=== PATIENT | female | born 1985 | race Caucasian/White ===

== ENCOUNTER → 2018-05-14 | Outpatient (CLI) | payer BC ==
--- NOTE | 2018-05-15 13:20 | MR ---
EXAMINATION TYPE: MR brain wo/w con DATE OF EXAM: 05/14/2018 COMPARISON: None HISTORY: FAMILY HISTORY OF MULTIPLE SCLEROSIS CONTRAST: Performed utilizing 6.5 mL intravenous Gadavist gadolinium contrast. TECHNIQUE: Multiplanar, multisequence imaging of the brain is performed on a 3.0 Elidia magnet. Demye linating disease protocol with additional Sagittal Flair sequence is performed. Study is performed wi thin 24 hours of arrival to the hospital. FINDINGS: Signal through the brain appears normal. No suspicious periventricular subcortical and deep white matter changes are evident. T2 White Matter Lesions Present : No Approximate Number of Lesions: None Enhancing Lesion(s) Present: No Change from Prior: No prior films Diffusion-weighted imaging is performed. No abnormal hyperintensity is present to suggest an acute i ntracranial infarct or acute ischemic change. Ventricles and sulci are appropriate for the patient age. There are no abnormal extra-axial fluid collections. The ventricular system and cisternal spaces are normal in size and appearance. The brain volume is age appropriate. The craniocervical junction whit ears within normal limits. The dural venous sinuses appear patent. No abnormal enhancement is present on post contrast images. . The visualized sinuses are clear. Visu alized orbits are unremarkable. IMPRESSION: 1. Normal pre and postcontrast MRI brain. 2. No suspicious white matter changes to suggest multiple sclerosis based on MRI findings.
== END | disposition home or self-care (01) ==
LOC: RADMRIMAIN 06:34
PROVIDERS: ATTEND Family Medicine
DX: Z13.858 Encounter for screening for other nervous system disorders (principal); Z82.0 Family history of epilepsy and other diseases of the nervous system
CPT/HCPCS: 70553; A9585